=== PATIENT | female | born 1955 | race Caucasian/White ===

== ENCOUNTER 2022-05-11 10:18 | Day surgery (SDC) | payer MEDICARE, BC, SELFPAY ==
--- NOTE | 2022-05-11 06:45 | W.ANESPRE ---
General Info Date of Service Date Performed: 05/11/22 Height: 5 ft 8 in Weight: 99.79 kg Body Mass Index (BMI): 33.4 Surgical Procedure: Operation Date: 05/11/22 13:40 Proposed Procedure Side Surgeon p Cataract Extraction with IOL Implant Right Benjamin Broussard MD Meds Allergies and Home Medications Allergies Allergy/AdvReac Type Severity Reaction Status Date / Time medroxyprogesterone Allergy Intermediate Hives Verified 05/11/22 10:57 Home Medication Medication Instructions Recorded amitriptyline 50 mg tablet 50 mg PO HS 05/06/22 atorvastatin 20 mg tablet 20 mg PO DAILY 05/06/22 bupropion HCl 100 mg tablet 100 mg PO TID 05/06/22 cholecalciferol (vitamin D3) 25 25 mcg PO DAILY 05/06/22 mcg (1,000 unit) tablet (Vitamin D3) docusate sodium 100 mg capsule 100 mg PO TID 05/06/22 (Mar[place]' Liqui-Gels) iron fumarate,polysacch no.1 130 1 cap PO DAILY 05/06/22 mg-vit C 25 mg-L. casei 30 mg capsule (Fusion) meloxicam 15 mg tablet 15 mg PO DAILY 05/06/22 metformin 500 mg tablet 500 mg PO BID 05/06/22 methadone 5 mg tablet 2.5 mg PO BID 05/06/22 methadone 5 mg tablet 5 mg PO HS 05/06/22 metoprolol succinate 100 mg 100 mg PO DAILY 05/06/22 tablet,extended release 24 hr pantoprazole 40 mg tablet,delayed 40 mg PO DAILY 05/06/22 release pregabalin 150 mg capsule 150 mg PO TID 05/06/22 sennosides 8.6 mg tablet (Senna 17.2 mg PO BID PRN 05/06/22 Lax) thiamine HCl (vitamin B1) 100 mg 100 mg PO DAILY 05/06/22 tablet multivitamin 1 tab PO DAILY 05/08/22 Current Visit Medications: Current Medications Generic Name Dose Route Start Last Admin Trade Name Freq PRN Reason Stop Dose Admin Acetaminophen 1,000 mg 05/11/22 06:00 Acetaminophen 500 Mg Tab PO Q4H PRN PRN Miscellaneous Medication 0 ml 05/11/22 06:00 Prednisolone 1%, Moxifloxacin 0.5%, Nepafenac 0.1% 5ml Btl OD DIRECTED SHILOH Miscellaneous Medication 0 ml 05/11/22 06:00 Tropicam./Phenyleph. (1/2.5%) 5 Ml Btl OD DIRECTED [facility] Tetracaine HCl 0 ml 05/11/22 06:00 Tetracaine 0.5% 4 Ml Btl OD DIRECTED [facility] Medical History Medical History Amputation of leg Pt. states she contracted necrotizing fascitis in (L) leg 2011 Arthritis Arthropathy Depressive disorder HLD (hyperlipidemia) HTN (hypertension) Hypersomnia Necrotizing fasciitis of lower leg states she contracted this while she was recieving chemo OAB (overactive bladder) PAULA (obstructive sleep apnea) Primary malignant neoplasm of female breast Sleep related bruxism SVT (supraventricular tachycardia) Pt. state she follows up with reading interventionist/PCP Type 2 diabetes mellitus without complication Urinary incontinence Surgical History Surgical History History of breast biopsy History of breast surgery History of carpal tunnel release of both wrists History of surgery of head noted on H&P not specificed Pt. states she had stiches on her head History of total hysterectomy Hx of colonoscopy Hx of neck surgery noted on H&P not specificed Tobacco Smoking/Tobacco Use Status: Never Alcohol Alcohol Intake: former Substance Use Substance use: Never Substance use type: does not use Vital Signs and Lab Results Vital Signs Most Recent Vital Signs in EMR: Temp Pulse Resp BP Pulse Ox 36.1 C L 80 16 149/74 H 97 05/11/22 10:48 05/11/22 10:48 05/11/22 10:48 05/11/22 10:48 05/11/22 10:48 Lab Results Blood Type / Crossmatch: No Data to Display Complete Blood Count: No Data to Display Complete Metabolic Panel: No Data to Display Liver Function Panel: No Data to Display Coagulation Panel: No Data to Display Cardiac Panel: No Data to Display Arterial Blood Gas: No Data to Display Venous Blood Gas: No Data to Display Pancreas Panel: No Data to Display Thyroid Panel: No Data to Display Infectious Disease: No Data to Display Blood Cultures: No Data to Display Toxicology Panel: No Data to Display Anesthesia Assessment and Plan Anesthesia History Personal History: No History of Anesthesia Complications Family History: No Family History of Anesthesia Complications Exercise Tolerance Exercise Tolerance: Metabolic Equivalents>4 Cardiac & Pulmonary Exam Cardiac Exam: Normal S1/S2 Heart Sounds Pulmonary Exam: Clear Bilateral Breath Sounds Implantable Cardiac Device Does patient have a Pacemaker or an ICD?: No Airway Exam Known Difficult Airway: No Mallampati Class: 3 Mouth Opening: Normal (> 3cm) Thyromental Distance: Greater than 3 cm Neck Range of Motion: Full ROM Neck Circumference: Normal Teeth Condition: Normal Dentition ASA Classification ASA Score: ASA 3 Emergency Case?: No NPO Status NPO Status: NPO Clears >2 hours, Solids >8 hours Anesthesia Plan Resuscitation Status: Full Code Anesthesia Technique: MAC Anesthesia Airway Planned: Natural Airway Monitors Used: Standard Monitors Preoperative Comments:: 67 yo female for cataract removal. Sig PMHx: HTN, PAULA, SVT, DM2, leg amp 2/2 nec fasc, breast CA. plan: MKO.
[2022-05-11 10:48] VITALS: BP 149/74; PULSE 80; RESP 16; TEMP 36.1; O2SAT 97
[2022-05-11] MEDS: Tropicam./Phenyleph. (1/2.5%) 5 ML BTL OD ×3 (10:59→11:18)
[2022-05-11 11:33] VITALS: BMI 33.4
[2022-05-11] MEDS: Lidocaine 2% Jelly 6 ML SYR (12:25)
[2022-05-11] MEDS: Povidone-Iodine Ophth 30 ML BTL (12:27)
[2022-05-11] MEDS: Duovisc Viscoelastic System EACH 1 EACH (12:34)
[2022-05-11] MEDS: Tetracaine 0.5% 4 ML BTL OD (12:34)
[2022-05-11] MEDS: Balanced Salt Soln.-PLUS 500 ML BAG (12:34)
[2022-05-11 12:54] VITALS: BP 104/60; PULSE 72; RESP 16; TEMP 36.5; O2SAT 93
--- NOTE | 2022-05-11 12:57 | W.PM.DSUDISC ---
Discharge Plan Disposition Patient Disposition: HOME Condition: Good Discharge Details Attending Provider: Benjamin Broussard Primary Care Provider: Peter Newman Home Meds and New Rx's Prescriptions: No Action metformin 500 mg Tablet 500 mg PO BID sennosides [Senna Lax] 8.6 mg Tablet 17.2 mg PO BID PRN atorvastatin 20 mg Tablet 20 mg PO DAILY meloxicam 15 mg Tablet 15 mg PO DAILY metoprolol succinate 100 mg Tablet Extended Release 24 Hr 100 mg PO DAILY thiamine HCl (vitamin B1) 100 mg Tablet 100 mg PO DAILY amitriptyline 50 mg Tablet 50 mg PO HS bupropion HCl 100 mg Tablet 100 mg PO TID pantoprazole 40 mg Tablet,Delayed Release (Dr/Ec) 40 mg PO DAILY docusate sodium [Mar[place]' Liqui-Gels] 100 mg Capsule 100 mg PO TID methadone 5 mg Tablet 5 mg PO HS methadone 5 mg Tablet 2.5 mg PO BID pregabalin 150 mg Capsule 150 mg PO TID cholecalciferol (vitamin D3) [Vitamin D3] 25 mcg (1,000 unit) Tablet 25 mcg PO DAILY Fusion 130 mg iron-25 mg-30 mg Capsule 1 cap PO DAILY multivitamin Tablet 1 tab PO DAILY Discharge Instructions Stand Alone Forms: Post-op Topical Cataract, Sheela Alvares (DSU) Discharge Orders Discharge Orders: Discharge Order (Routine); Ordered 05/11/22 Ordered By: Benjamin Broussard DS: Diagnosis Discharge Diagnosis (1) Nuclear sclerotic cataract of right eye: Status: Resolved
--- NOTE | 2022-05-11 12:58 | W.PM.OP ---
Date of service: 05/11/22 Time of Service: 13:48 Operative Note Operative Note DATE OF PROCEDURE: 05/11/22 PRE-OP DIAGNOSIS: Nuclear cataract, right eye With the rule astigmatism, right eye Status post LASIK, right eye POST-OP DIAGNOSIS: same PROCEDURE: Cataract extraction using phacoemulsification with toric intraocular lens implant, right eye SURGEON: Benjamin Broussard Refer to Anesthesia Record PATHOLOGY: none sent COMPLICATIONS: None Patient was transported to: same day Patient's condition: stable Implants: [employer] / ANTONIO Tecnis ZCT Toric Intraocular Lens Indications: Progressive decreased vision due to cataract, right eye, with corneal astigmatism Procedure Description: [] CATARACT SURGERY OPERATIVE REPORT PREOPERATIVE DIAGNOSIS: Nuclear cataract, right eye Status post LASIK, right eye With the rule astigmatism, right eye POSTOPERATIVE DIAGNOSIS: Same OPERATION: Cataract extraction using phacoemulsification with posterior chamber toric intraocular lens implant, right eye. IOL: IOL Electro Mechanical Engineer/Model: [employer] Vision / ANTONIO Tecnis ZCU 375 IOL Power: + 20.5 diopters sphere, + 3.75 cylinder IOL Serial Number: [id number] Optic Diameter: 6.0mm Haptic/Overall Diameter: 13.00mm PHACO INFO: Dexter Centurion Vision System with OZil and Active Fluidics Cumulative Dispersed Energy (CDE): .4.94 seconds SURGEON: Benjamin Broussard MD, SALUD ANESTHESIA: Monitored Anesthesia Care (MAC), with local sub-tenon's anesthetic infiltration COMPLICATIONS: None SPECIMENS: None INDICATIONS FOR PROCEDURE: The patient is a 67-year-old lady who has previously undergone LASEK corneal refractive surgery in both eyes. She has now developed a significant nuclear cataract in the right eye. She also has a significant amount of with the rule astigmatism. The option of cataract surgery was offered to the patient and she wished to proceed. She desired a toric intraocular lens implant to reduce the amount of postoperative a stigmatism. PROCEDURE: The correct surgical eye was identified and marked as the right eye and the pupil was dilated in the preoperative area using mydriatics and cycloplegics. The dilated pupil size was 7.0 mm. With the patient in the seated position, topical anesthetic was applied and a surgical marker was used to hallie the limbus at 6:00. A Surgilum Robomarker was then used to hallie the 0/180 degree reference axis. Oral sedation was administered in the form of an Imprimis MKO Melt (midazolam 3mg/ketamine 25mg/ondansetron 2mg). The patient was brought to the operating room where cardiopulmonary monitoring was instituted and surgical time-out was performed, confirming the correct operative eye and IOL power. Topical anesthesia was administered and ophthalmic povidone-iodine 5% was instilled into the conjunctival fornices. Lidocaine gel was applied to the cornea and the archana-ocular area was prepped with Betadine 10% solution and draped in the usual sterile fashion for intraocular surgery, including an aperture drape. A Tegaderm transparent film dressing was cut in half and used to cover the lashes and lid margins. Care was taken to sequester the lashes and lid margins under the Tegaderm dressing. A lid speculum was placed between the lids of the operative eye and the Elba-Mitesh operating microscope was maneuvered into position. Riley scissors were then used to make a conjunctival buttonhole approximately 6mm posterior to the limbus in the inferonasal quadrant. Blunt dissection was carried out to expose bare sclera, and a blunt-tipped sub-tenon?s anesthesia cannula was introduced and passed posteriorly along the globe where non-preserved plain lidocaine was injected into posterior sub-Tenon?s space. A corneal ring gauge and axis marker were then used to hallie the 90/270 degree position for the main phaco incision.and the 180 degree axis for alignment of the toric IOL. A sideport knife was used to make a paracentesis port at the 7:00 postion and the anterior chamber was filled with viscoelastic.. A 2.4mm keratome knife was used to create a half-thickness groove at the limbus and then to construct a three-plane near-clear corneal tunnel extending 2.0mm into clear cornea at the 180 degree axis. . A flap was raised on the anterior capsule and capsulorhexis forceps were used to complete a continuous curvilinear capsulorhexis of 5.0 mm. Balanced salt solution was then used to perform cortical cleaving hydrodissection and nuclear hydrodelineation until the lens could be freely rotated within the capsular bag. The lens nucleus was then disassembled and removed within the capsular bag and iris plane using phacoemulsification. Residual cortical material was removed using the 45-degree angled silicone I/A tip with 0.3mm port. The posterior capsule was carefully polished to remove as much residual lens epithelial cells as safely possible. The capsular bag was then inflated and the anterior chamber deepened with viscoelastic. The lens implant described above was inserted into the capsular bag using the ANTONIO Inwood Injector. A Kuglen hook was used to dial the IOL into position, about 10 degrees counterclockwise of its final alignment. Residual viscoelastic was then removed first from posterior to the IOL, then from the anterior chamber using the I/A handpiece. The I/A handpiece was then used to dial the IOL to the target axis. The lens implant was noted to center nicely within the capsular bag, with the toric IOL nicole aligned at the 90/270 degree axis. The incisions were stromally hydrated, and the anterior chamber was reformed using BSS. Then 0.4cc of moxifloxacin 1.5mg/ml were injected into the capsular bag and anterior chamber. The incisions were checked with a Weck spear and found to be secure. Several drops of ophthalmic povidone-iodine 5% were then applied to the eye followed by two drops of Imprimis combination gatifloxacin/dexamethasone solution. The drapes were removed and a clear plastic protective eye shield was placed over the eye. The patient was then returned to Same Day Surgery in stable condition.
--- NOTE | 2022-05-11 13:08 | W.ANESPOSTOP ---
Postoperative Evaluation Date, Time and Location Date Performed: 05/11/22 Time Performed: 13:08 Patient Location: Day Surgery Unit Vital Signs Most Recent Imported Vital Signs: Most Recent Vital Signs Temp Pulse Resp BP Pulse Ox 36.5 C 72 16 104/60 93 05/11/22 12:54 05/11/22 12:54 05/11/22 12:54 05/11/22 12:54 05/11/22 12:54 Pain Score Most Recent Pain Score: Most Recent Pain Score Pain Level 0 05/11/22 12:54 Assessment Mental Status: Awake (Alert & Oriented to Patient Baseline) Airway and Respiratory Function: Patent airway with normal (patient baseline) respiratory exam Cardiovascular Function: Hemodynamically Stable Hydration Status: Adequately Hydrated Nausea & Vomiting: No Nausea or Vomiting Pain: Pt. Denies Any Pain Peripheral Nerve Block: Patient did not receive a nerve block
[2022-05-11 13:21] VITALS: BP 131/54; PULSE 76; RESP 16; TEMP 36.5; O2SAT 93
== END 2022-05-11 13:38 | disposition home or self-care (01) ==
PROVIDERS: PCP Internal Medicine; Visit Provider Ophthalmology
PROC: (CPT 66984; principal; 2022-05-11 13:30)
DX: H25.11 Age-related nuclear cataract, right eye (principal); I10 Essential (primary) hypertension; I47.1 Supraventricular tachycardia; E11.9 Type 2 diabetes mellitus without complications
CPT/HCPCS: 66984; V2632

== ENCOUNTER 2022-05-29 06:55 | Day surgery (SDC) | payer MEDICARE, BC, SELFPAY ==
[2022-05-29] MEDS: Tropicam./Phenyleph. (1/2.5%) 5 ML BTL OS ×3 (07:16→07:25)
--- NOTE | 2022-05-29 07:17 | W.ANESPRE ---
General Info Date of Service Date Performed: 05/29/22 Height: 5 ft 8 in Weight: 107.9 kg Body Mass Index (BMI): 36.1 Surgical Procedure: Operation Date: 05/29/22 08:40 Proposed Procedure Side Surgeon p Cataract Extraction with IOL Implant Left Benjamin Broussard MD Meds Allergies and Home Medications Allergies Allergy/AdvReac Type Severity Reaction Status Date / Time medroxyprogesterone Allergy Intermediate Hives Verified 05/29/22 06:49 Home Medication Medication Instructions Recorded amitriptyline 50 mg tablet 50 mg PO HS 05/06/22 atorvastatin 20 mg tablet 20 mg PO DAILY 05/06/22 bupropion HCl 100 mg tablet 100 mg PO TID 05/06/22 cholecalciferol (vitamin D3) 25 25 mcg PO DAILY 05/06/22 mcg (1,000 unit) tablet (Vitamin D3) docusate sodium 100 mg capsule 100 mg PO TID 05/06/22 (Mar[place]' Liqui-Gels) iron fumarate,polysacch no.1 130 1 cap PO DAILY 05/06/22 mg-vit C 25 mg-L. casei 30 mg capsule (Fusion) meloxicam 15 mg tablet 15 mg PO DAILY 05/06/22 metformin 500 mg tablet 500 mg PO BID 05/06/22 methadone 5 mg tablet 2.5 mg PO BID 05/06/22 methadone 5 mg tablet 5 mg PO HS 05/06/22 metoprolol succinate 100 mg 100 mg PO DAILY 05/06/22 tablet,extended release 24 hr pantoprazole 40 mg tablet,delayed 40 mg PO DAILY 05/06/22 release pregabalin 150 mg capsule 150 mg PO TID 05/06/22 sennosides 8.6 mg tablet (Senna 17.2 mg PO BID PRN 05/06/22 Lax) thiamine HCl (vitamin B1) 100 mg 100 mg PO DAILY 05/06/22 tablet multivitamin 1 tab PO DAILY 05/08/22 Current Visit Medications: Current Medications Generic Name Dose Route Start Last Admin Trade Name Freq PRN Reason Stop Dose Admin Acetaminophen 1,000 mg 05/29/22 06:00 Acetaminophen 500 Mg Tab PO Q4H PRN PRN Miscellaneous Medication 0 ml 05/29/22 06:00 Prednisolone 1%, Moxifloxacin 0.5%, Nepafenac 0.1% 5ml Btl OS DIRECTED SHILOH Miscellaneous Medication 0 ml 05/29/22 06:00 Tropicam./Phenyleph. (1/2.5%) 5 Ml Btl OS DIRECTED [facility] Tetracaine HCl 0 ml 05/29/22 06:00 Tetracaine 0.5% 4 Ml Btl OS DIRECTED [facility] PFSH Active Problems Active Problems: Problem Status Onset Code Nuclear sclerotic cataract of right eye H25.11 Medical History Medical History Amputation of leg Pt. states she contracted necrotizing fascitis in (L) leg 2011 Arthritis Arthropathy Depressive disorder HLD (hyperlipidemia) HTN (hypertension) Hypersomnia Necrotizing fasciitis of lower leg states she contracted this while she was recieving chemo OAB (overactive bladder) PAULA (obstructive sleep apnea) Primary malignant neoplasm of female breast Sleep related bruxism SVT (supraventricular tachycardia) Pt. state she follows up with cna ltc/PCP Type 2 diabetes mellitus without complication Urinary incontinence Surgical History Surgical History History of breast biopsy History of breast surgery History of carpal tunnel release of both wrists History of surgery of head noted on H&P not specificed Pt. states she had stiches on her head History of total hysterectomy Hx of colonoscopy Hx of neck surgery noted on H&P not specificed Tobacco Smoking/Tobacco Use Status: Current-Occasional Alcohol Alcohol Intake: former Substance Use Substance use: Never Substance use type: does not use Vital Signs and Lab Results Lab Results Blood Type / Crossmatch: No Data to Display Complete Blood Count: No Data to Display Complete Metabolic Panel: No Data to Display Liver Function Panel: No Data to Display Coagulation Panel: No Data to Display Cardiac Panel: No Data to Display Arterial Blood Gas: No Data to Display Venous Blood Gas: No Data to Display Pancreas Panel: No Data to Display Thyroid Panel: No Data to Display Infectious Disease: No Data to Display Blood Cultures: No Data to Display Toxicology Panel: No Data to Display Anesthesia Assessment and Plan Anesthesia History Personal History: No History of Anesthesia Complications Family History: No Family History of Anesthesia Complications Exercise Tolerance Exercise Tolerance: Metabolic Equivalents>4 Cardiac & Pulmonary Exam Cardiac Exam: Normal S1/S2 Heart Sounds Pulmonary Exam: Clear Bilateral Breath Sounds Implantable Cardiac Device Does patient have a Pacemaker or an ICD?: No Airway Exam Known Difficult Airway: No Mallampati Class: 3 Mouth Opening: Normal (> 3cm) Thyromental Distance: Greater than 3 cm Neck Range of Motion: Full ROM Neck Circumference: Normal Teeth Condition: Normal Dentition ASA Classification ASA Score: ASA 3 Emergency Case?: No NPO Status NPO Status: NPO Clears >2 hours, Solids >8 hours Anesthesia Plan Resuscitation Status: Full Code Anesthesia Technique: MAC Anesthesia Airway Planned: Natural Airway Monitors Used: Standard Monitors
[2022-05-29 07:19] VITALS: BMI 36.1
[2022-05-29] MEDS: Tetracaine 0.5% 4 ML BTL OS (08:14)
[2022-05-29] MEDS: Lidocaine 2% Jelly 6 ML SYR (08:14)
[2022-05-29] MEDS: Balanced Salt Soln.-PLUS 500 ML BAG (08:22)
[2022-05-29] MEDS: Duovisc Viscoelastic System EACH 1 EACH (08:22)
[2022-05-29] MEDS: Povidone-Iodine Ophth 30 ML BTL (08:24)
[2022-05-29 08:45] VITALS: BP 108/94; PULSE 83; RESP 18; TEMP 36.1; O2SAT 96
--- NOTE | 2022-05-29 08:45 | W.PM.DSUDISC ---
Discharge Plan Disposition Patient Disposition: HOME Condition: Good Discharge Details Attending Provider: Benjamin Broussard Primary Care Provider: Peter Newman Home Meds and New Rx's Prescriptions: No Action metformin 500 mg Tablet 500 mg PO BID sennosides [Senna Lax] 8.6 mg Tablet 17.2 mg PO BID PRN atorvastatin 20 mg Tablet 20 mg PO DAILY meloxicam 15 mg Tablet 15 mg PO DAILY metoprolol succinate 100 mg Tablet Extended Release 24 Hr 100 mg PO DAILY thiamine HCl (vitamin B1) 100 mg Tablet 100 mg PO DAILY amitriptyline 50 mg Tablet 50 mg PO HS bupropion HCl 100 mg Tablet 100 mg PO TID pantoprazole 40 mg Tablet,Delayed Release (Dr/Ec) 40 mg PO DAILY docusate sodium [Marino' Liqui-Gels] 100 mg Capsule 100 mg PO TID methadone 5 mg Tablet 5 mg PO HS methadone 5 mg Tablet 2.5 mg PO BID pregabalin 150 mg Capsule 150 mg PO TID cholecalciferol (vitamin D3) [Vitamin D3] 25 mcg (1,000 unit) Tablet 25 mcg PO DAILY Fusion 130 mg iron-25 mg-30 mg Capsule 1 cap PO DAILY multivitamin Tablet 1 tab PO DAILY Discharge Instructions Stand Alone Forms: Post-op Topical Cataract, Sheela Alvares (DSU) Discharge Orders Discharge Orders: Discharge Order (Routine); Ordered 05/29/22 Ordered By: Benjamin Broussard DS: Diagnosis Discharge Diagnosis (1) Nuclear sclerotic cataract of left eye: Status: Resolved
--- NOTE | 2022-05-29 08:46 | ROE_ITS ---
Date of service: 05/29/22 Time of Service: 08:46 Operative Note Operative Note DATE OF PROCEDURE: 05/29/22 PRE-OP DIAGNOSIS: Nuclear cataract, left eye Astigmatism, left eye POST-OP DIAGNOSIS: same PROCEDURE: Cataract extraction using phacoemulsification with toric intraocular lens implant, left eye SURGEON: Benjamin Broussard ANESTHESIA TYPE: Local By Surgeon and MAC Refer to Anesthesia Record PATHOLOGY: none sent COMPLICATIONS: None Patient was transported to: same day Patient's condition: stable Implants: Leonidas [employer] / ANTONIO Tecnis ZCU Toric Intraocular Lens Indications: Progressive decreased vision due to cataract, left eye, with corneal astigmatism Procedure Description: CATARACT SURGERY OPERATIVE REPORT PREOPERATIVE DIAGNOSIS: Nuclear cataract, left eye POSTOPERATIVE DIAGNOSIS: Same OPERATION: Cataract extraction using phacoemulsification with posterior chamber toric intraocular lens implant, left eye. IOL: IOL Business Performance Manager/Model: [employer] Vision / ANTONIO Tecnis ZCU 300 IOL Power: + 21.5 diopters sphere, 3.00 cylinder IOL Serial Number: [id number] Optic Diameter: 6.0mm Haptic/Overall Diameter: 13.00mm PHACO INFO: Dexter RxEyeurion Vision System with OZil and Active Fluidics Cumulative Dispersed Energy (CDE): 8.94 seconds SURGEON: Benjamin Broussard MD, SALUD ANESTHESIA: Monitored Anesthesia Care (MAC), with local sub-tenon's anesthetic infiltration COMPLICATIONS: None SPECIMENS: None INDICATIONS FOR PROCEDURE: The patient is a 67-year-old lady with history of diminished visual acuity in both eyes secondary to development of bilateral nuclear cataract. She also has significant amount of corneal astigmatism. She has already undergone cataract surgery with toric intraocular lens implant in the right eye and is doing well postoperatively. She now presents for cataract surgery in the left eye. PROCEDURE: The correct surgical eye was identified and marked as the left eye and the pupil was dilated in the preoperative area using mydriatics and cycloplegics. The dilated pupil size was 7.0 mm. With the patient in the seated position, topical anesthetic was applied and a surgical marker was used to hallie the limbus at 6:00. A Surgilum Robomarker was then used to hallie the 0/180 degree reference axis. Oral sedation was administered in the form of an Imprimis MKO Melt (midazolam 3mg/ketamine 25mg/ondansetron 2mg). The patient was brought to the operating room where cardiopulmonary monitoring was instituted and surgical time-out was performed, confirming the correct operative eye and IOL power. Topical anesthesia was administered and ophthalmic povidone-iodine 5% was instilled into the conjunctival fornices. Lidocaine gel was applied to the cornea and the archana-ocular area was prepped with Betadine 10% solution and draped in the usual sterile fashion for intraocular surgery, including an aperture drape. A Tegaderm transparent film dressing was cut in half and used to cover the lashes and lid margins. Care was taken to sequester the lashes and lid margins under the Tegaderm dressing. A lid speculum was placed between the lids of the operative eye and the Dexter [employer] Rev[employer] operating microscope was maneuvered into position. Riley scissors were then used to make a conjunctival buttonhole approximately 6mm posterior to the limbus in the inferonasal quadrant. Blunt dissection was carried out to expose bare sclera, and a blunt-tipped sub-tenon?s anesthesia cannula was introduced and passed posteriorly along the globe where non- preserved plain lidocaine was injected into posterior sub-Tenon?s space. A corneal ring gauge and axis marker were then used to hallie the 0 degree position for the main phaco incision, and the 90/270 degree axis for alignment of the toric IOL. A sideport knife was used to make a paracentesis port superior/superiortemporally. Intraocular phenylephrine/lidocaine was injected into the anterior chamber. The anterior chamber was then filled with viscoelastic. A 2.4mm keratome knife was used to create a half-thickness groove at the limbus and then to construct a three-plane near-clear corneal tunnel extending 2.0mm into clear cornea at the 0 degree axis. . A flap was raised on the anterior capsule and capsulorhexis forceps were used to complete a continuous curvilinear capsulorhexis of 5.0 mm. Balanced salt solution was then used to perform cortical cleaving hydrodissection and nuclear hydrodelineation until the lens could be freely rotated within the capsular bag. The lens nucleus was then disassembled and removed within the capsular bag and iris plane using phacoemulsification. Residual cortical material was removed using the 45-degree angled silicone I/A tip with 0.3mm port. The posterior capsule was carefully polished to remove as much residual lens epithelial cells as safely possible. The capsular bag was then inflated and the anterior chamber deepened with viscoelastic. The lens implant described above was inserted into the capsular bag using the ANTONIO [place] Injector. A Kuglen hook was used to dial the IOL into position, about 10 degrees counterclockwise of its final alignment. Residual viscoelastic was then removed first from posterior to the IOL, then from the anterior chamber using the I/A handpiece. The I/A handpiece was then used to dial the IOL to the target axis. The lens implant was noted to center nicely within the capsular bag, with the toric IOL nicole aligned at the 90/270 degree axis. The incisions were stromally hydrated, and the anterior chamber was reformed using BSS. Then 0.5cc of moxifloxacin 1.0mg/ml were injected into the capsular bag and anterior chamber. The incisions were checked with a Weck spear and found to be secure. Several drops of ophthalmic povidone-iodine 5% were then applied to the eye followed by two drops of Imprimis combination prednisolone/moxifloxacin/nepafenac solution. The drapes were removed and a clear plastic protective eye shield was placed over the eye. The patient was then returned to Same Day Surgery in stable condition.
--- NOTE | 2022-05-29 09:08 | W.ANESPOSTOP ---
Postoperative Evaluation Date, Time and Location Date Performed: 05/29/22 Time Performed: 08:50 Patient Location: Day Surgery Unit Vital Signs Most Recent Imported Vital Signs: Most Recent Vital Signs Temp Pulse Resp BP Pulse Ox 36.1 C L 83 18 108/94 H 96 05/29/22 08:45 05/29/22 08:45 05/29/22 08:45 05/29/22 08:45 05/29/22 08:45 Pain Score Most Recent Pain Score: Most Recent Pain Score Pain Level 0 05/29/22 08:45 Assessment Mental Status: Awake (Alert & Oriented to Patient Baseline) Airway and Respiratory Function: Patent airway with normal (patient baseline) respiratory exam Cardiovascular Function: Hemodynamically Stable Hydration Status: Adequately Hydrated Nausea & Vomiting: No Nausea or Vomiting Pain: Pt. Denies Any Pain Peripheral Nerve Block: Patient did not receive a nerve block
[2022-05-29 09:15] VITALS: BP 138/69; PULSE 85; RESP 20; TEMP 36; O2SAT 95
== END 2022-05-29 09:19 | disposition home or self-care (01) ==
PROVIDERS: PCP Internal Medicine; Visit Provider Ophthalmology
PROC: (CPT 66984; principal; 2022-05-29 08:30)
DX: H25.12 Age-related nuclear cataract, left eye (principal); E11.9 Type 2 diabetes mellitus without complications; I10 Essential (primary) hypertension; E78.5 Hyperlipidemia, unspecified; G47.33 Obstructive sleep apnea (adult) (pediatric)
CPT/HCPCS: 66984; V2632

== ENCOUNTER → 2025-08-09 12:58 | Outpatient (BNVA) | payer MEDICARE, BC, SELFPAY | PROVIDERS: PCP Family Medicine; Referring Provider Family Medicine; Visit Provider Podiatrist | DX: I73.89 Other specified peripheral vascular diseases (principal); E11.8 Type 2 diabetes mellitus with unspecified complications; F17.200 Nicotine dependence, unspecified, uncomplicated; L60.0 Ingrowing nail; Z89.612 Acquired absence of left leg above knee | CPT/HCPCS: 93922; 11720 ==

== ENCOUNTER → 2025-09-20 10:58 | Outpatient (BNVA) | payer MEDICARE, BC, SELFPAY | PROVIDERS: PCP Family Medicine; Referring Provider Family Medicine; Visit Provider Podiatrist | DX: L60.0 Ingrowing nail (principal); M79.671 Pain in right foot; F17.200 Nicotine dependence, unspecified, uncomplicated; I73.89 Other specified peripheral vascular diseases | CPT/HCPCS: 99214 ==

== ENCOUNTER → 2025-11-06 13:31 | Outpatient (BNVA) | payer MEDICARE, BC, SELFPAY | PROVIDERS: PCP Family Medicine; Referring Provider Family Medicine; Visit Provider Podiatrist | DX: L60.0 Ingrowing nail (principal); M79.674 Pain in right toe(s); F17.200 Nicotine dependence, unspecified, uncomplicated; I73.89 Other specified peripheral vascular diseases | CPT/HCPCS: 11750 ==